=== PATIENT | male | born 1950 | race Asian ===

== ENCOUNTER 2022-09-24 18:07 | Emergency (ER) | payer MEDICARE ==
[~2022-09-24] VITALS: Ht 165.1 cm; Wt 72.6 kg
[2022-09-24] MEDS ORDERED: LEVOFLOXACIN 500MG TABLET PO STA (23:07)
[2022-09-24] MEDS ORDERED: LEVO-65 MT (23:10)
[2022-09-24] MEDS ORDERED: T3 PO (23:10)
[2022-09-24] MEDS ORDERED: KETOROLAC 60MG/2ML VIAL IM ONE (23:15)
[2022-09-24] MEDS ORDERED: HYDROCODONE/ACETAMINOPHEN 5/325MG TABLET PO ONE (23:30)
[2022-09-25 00:40] VITALS: BP 110/68
[2022-09-25 00:51] LABS: CLARITY URINE TURBID (CLEAR); COLOR URINE ORANGE (YELLOW); KETONES URINE 2+ (NEGATIVE); LEUKOCYTE ESTERASE URINE 3+ (NEGATIVE); NITRITE URINE NEGATIVE (NEGATIVE); OCCULT BLOOD URINE 3+ (NEGATIVE); PH URINE 5.5 (4.5-8.0); PROTEIN URINE 2+ (NEGATIVE)
== END 2022-09-25 01:43 | disposition home or self-care (01) ==
LOC: ER 18:07
DX: N45.1 Epididymitis (principal); I10 Essential (primary) hypertension; E11.9 Type 2 diabetes mellitus without complications
CPT/HCPCS: 76870; 81003; 87086; 93976; 96372; 99285; J1885